=== PATIENT | female | born 1980 | race African-American/Black ===

== ENCOUNTER 2023-07-30 03:52 | Emergency (ER) | payer MEDICAID ==
[~2023-07-30] VITALS: Ht 165.1 cm; Wt 118.0 kg
[2023-07-30] MEDS ORDERED: AMLO-257 PO (04:40)
[2023-07-30] MEDS: CloNIDine HCL 0.1 MG TABLET PO ONE (04:41)
[2023-07-30] MEDS ORDERED: HYDR25TA2 PO ×2 (04:41→05:52)
[2023-07-30] MEDS: AmLODIPine BESYLATE 5 MG TABLET PO ONE (04:41)
[2023-07-30] MEDS: HYDROCHLOROTHIAZIDE 25 MG TABLET PO ONE (04:44)
[2023-07-30 05:23] VITALS: BP 199/125; PULSE 89; RESP 18; TEMP 98.2
[2023-07-30] MEDS ORDERED: AMLO-258 PO (05:51)
[2023-07-30] MEDS ORDERED: CLON0.1T2 PO (05:53)
== END 2023-07-30 06:10 | disposition home or self-care (01) ==
LOC: EMS 03:53
DX: I10 Essential (primary) hypertension (principal); F17.210 Nicotine dependence, cigarettes, uncomplicated; F15.90 Other stimulant use, unspecified, uncomplicated; Z90.710 Acquired absence of both cervix and uterus; Z88.8 Allergy status to other drugs, medicaments and biological substances
CPT/HCPCS: 99284; Z7502; Z7610